=== PATIENT | female | born 1980 ===

== ENCOUNTER 2017-07-21 00:20 | Emergency (ER) | payer OTHER ==
[2017-07-21 21:31] VITALS: BP 106/70; PULSE 86; RESP 17; TEMP 97.5
== END 2017-07-21 02:00 | disposition home or self-care (01) ==
LOC: H.EROB2 00:20 → H.EROB 00:20 → H.EROB2 02:00
DX: O47.1 False labor at or after 37 completed weeks of gestation (principal); Z3A.28 28 weeks gestation of pregnancy

== ENCOUNTER 2017-08-03 08:16 | Inpatient (IN) | payer OTHER ==
[2017-08-03 08:47] VITALS: BMI 36.8
[2017-08-03] MEDS: Lactated Ringer's 1,000 ML IV SCH ×4 (09:00→15:00)
[2017-08-03 09:46] LABS: BASO % 0.3 % (0.0-2.0); EOS # 0.1 K/uL (0.0-0.7); LYMPH # 1.5 K/uL (1.0-4.3); LYMPH % 14.4 % (20.0-40.0); MEAN CORPUSCULAR HEMOGLOBIN 30.5 pg (27.0-31.0); MEAN CORPUSCULAR HGB CONC 32.8 g/dL (33.0-37.0); MEAN PLATELET VOLUME 9.3 fl (7.2-11.7); MONO # 0.7 K/uL (0.0-0.8); MONO % 6.6 % (0.0-10.0); NEUT # 8.1 K/uL (1.8-7.0); NEUT % 77.7 % (50.0-75.0); RED CELL DISTRIBUTION WIDTH 14.8 % (11.5-14.5); WHITE BLOOD COUNT 10.4 K/uL (4.8-10.8)
[2017-08-03 09:57] LABS: PARTIAL THROMBOPLASTIN TIME 27.1 Seconds (25.6-37.1)
[2017-08-03] MEDS ORDERED: Fentanyl/Bupivacaine HCl 250 ML EPI ONE (12:23)
[2017-08-03] MEDS ORDERED: Bupivacaine HCl 0.25% PF (10 ml) Inj ONE (12:24)
[2017-08-03] MEDS ORDERED: Influenza Vaccine 18yr & older 0.5 ML/45 MCG SYR IM ONE (12:24)
[2017-08-03] MEDS ORDERED: Lidocaine 1% Inj (20ml) ONE (17:13)
[2017-08-03] MEDS ORDERED: Oxytocin 30 units/LR 500ML 30 U/500 ML BAG IV ONE ×2 (18:04)
--- NOTE | 2017-08-03 18:32 | OBADHP ---
Datetime: 08/03/2017 18:26 Admit Comment, IP Provider: term h/o dvt on heparin admitted for induction of labor and de livery Pelvic Type - PN: Adequate Extremities - PN: Normal Abdomen - PN: Normal Back - PN: Normal Breast - PN: Normal Lungs - PN: Normal Heart - PN: Normal Thyroid - PN: Normal Neurologic - PN: Normal HEENT - PN: Normal General - PN: Normal Presentation-Admit: Vertex FHR - Baseline A Provider: 140 Membranes, Provider: Intact Contraction Comments Provider: irregular Gestation - Est Wks by US: 40+ Vital Signs Provider: Reviewed; Within Normal Limits IP Chief Complaint: Uterine contractions NICHD Variability Prov Fetus A: Moderate 6-25bpm NICHD Accel Fetus A IP Provider: 10X10 FHR Category Provider Fetus A: Category I NICHD Decel Fetus A IP Provider: None Dilatation, Provider: 3 Effacement, Provider: 75% Station, Provider: -2 Genitourinary Exam: Normal DTRs - PN: Normal EGA AdmitDate IP: 40.1 IP Adm Impression: Postterm, intrauterine ; Intact Membranes IP Admit Plan: Admit to unit; Initiate labor induction protocol
--- NOTE | 2017-08-03 18:37 | OBDS ---
DELIVERY PERSONNEL Delivery Doctor: Yue Lim MD Beck Operator: Maricruz Hatch RN MATERNAL INFORMATION Delivery Anesthesia: Epidural Medications in Delivery: 30 units Pitocin in 500 ml LR Estimated Blood Loss (ml): 200 Placenta Cultured: No Maternal Complications: None Provider Comments: delivery of live baby boy 9/9 clear fluid cord with 3vessels placenta intac t first degree laceration and repair with 2-0 chromic LABOR SUMMARY EDC: 08/02/2017 00:00 No. Babies in Womb: 1 Attempted: 0 Labor Anesthesia: Epidural LABOR INFORMATION Reason for Induction: Postterm Onset of Labor: 08/03/2017 12:30 Complete Dilatation: 08/03/2017 17:05 Oxytocin: Augmentation Group B Beta Strep: Negative (Annotations: 07/03/17) Antibiotics # of Doses: 0 Steroids Given: None Reason Steroids Not Administered: Not Applicable MEMBRANES Membranes Rupture Method: Artificial Rupture of Membranes: 08/03/2017 11:10 Length of Rupture (hrs): 6.82 Amniotic Fluid Color: Clear Amniotic Fluid Amount: Small Amniotic Fluid Odor: Normal STAGES OF LABOR Stage 1 hrs: 4 Stage 1 min: 35 Stage 2 hrs: 0 Stage 2 min: 54 Stage 3 hrs: 0 Stage 3 min: 5 Total Time in Labor hrs: 5 Total Time in Labor min: 34 VAGINAL DELIVERY Episiotomy: None Laceration Extension: First Degree Laceration Type: Perineal Laceration Repair Note: repair of laceration with2-0 chromic Initial Vag Sponge Count: 5 Final Vag Sponge Count: 5 Initial Vag Sharps Count: 1 Final Vag Sharps Count: 1 Sponge Count Correct: Yes Sharps Count Correct: Yes Count Comment: correct CSECTION DELIVERY Primary Indication: N/A Secondary Indication: N/A CSection Urgency: N/A CSection Incidence: N/A Labor: N/A Elective: N/A CSection Incision: N/A BABY A INFORMATION Delivery Date/Time: 08/03/2017 17:59 Method of Delivery: Vaginal Born in Route : No : N/A Forceps: N/A Vacuum Extraction: N/A Shoulder Dystocia : No SHOULDER DYSTOCIA BABY A Infant Delivery Date/Time: 08/03/2017 17:59 PRESENTATION/POSITION BABY A Presentation: Cephalic Cephalic Presentation: Vertex Vertex Position: Left Occipital Anterior Breech Presentation: N/A PLACENTA INFORMATION BABY A Placenta Delivery Time : 08/03/2017 18:04 Placenta Method of Delivery: Spontaneous Placenta Status: Delivered SCORES BABY A Heart Rate 1 min: >100 bpm Resp Effort 1 min: Good Cry Reflex Irritability 1 min: Cough or Sneeze or Pulls Away Muscle Tone 1 min: Active Motion Color 1 min: Body [place], Extremities Blue SCORE 1 MIN: 9 Heart Rate 5 min: >100 bpm Resp Effort 5 min: Good Cry Reflex Irritability 5 min: Cough or Sneeze or Pulls Away Muscle Tone 5 min: Active Motion Color 5 min: Body [place], Extremities Blue SCORE 5 MIN: 9 INFANT INFORMATION BABY A Gestational Age at Delivery: 40.1 Gestational Status: Term Outcome : Liveborn Infant Condition : Stable Infant Sex: Male IDENTIFICATION/MEDS BABY A ID Band Number: [id number] WEIGHT/LENGTH BABY A Infant Birthweight (gms): 3140 Infant Weight (lb): 6 Weight (oz): 15 CORD INFORMATION BABY A No. Cord Vessels: 3 Nuchal Cord : N/A Cord Blood Taken: Yes Suction: Mouth; Nose ASSESSMENT BABY A Complications: None Physical Findings at Delivery: Within Normal Limits Infant Respirations: Appears Normal Care By: Ivy Evans Transferred To: Remains with Mother
[2017-08-03] MEDS ORDERED: Benzocaine/Menthol SPRAY TOP PRN (18:38)
[2017-08-03] MEDS ORDERED: Oxycodone/Acetaminophen 5/325 mg Tab PO PRN ×2 (18:38)
[2017-08-04 08:11] LABS: BASO # 0.1 K/uL (0.0-0.2); BASO % 0.5 % (0.0-2.0); EOS # 0.1 K/uL (0.0-0.7); EOS % 0.8 % (0.0-4.0); HEMATOCRIT 37.1 % (34.0-47.0); LYMPH # 2.3 K/uL (1.0-4.3); LYMPH % 13.5 % (20.0-40.0); MEAN CORPUSCULAR HEMOGLOBIN 30.7 pg (27.0-31.0); MEAN PLATELET VOLUME 9.2 fl (7.2-11.7); MONO # 1.2 K/uL (0.0-0.8); MONO % 7.3 % (0.0-10.0); NEUT % 77.9 % (50.0-75.0); RED CELL DISTRIBUTION WIDTH 14.9 % (11.5-14.5); WHITE BLOOD COUNT 16.7 K/uL (4.8-10.8)
[2017-08-04] MEDS ORDERED: Influenza Vaccine 18yr & older 0.5 ML/45 MCG SYR IM ONE (09:00)
[2017-08-04] MEDS: Enoxaparin 100 mg Syringe SC SCH ×2 (09:22→21:15)
--- NOTE | 2017-08-04 10:41 | OBPPN ---
Datetime: 08/04/2017 10:36 PP Pain Prov: Within normal limits PP Nausea Prov: Denies PP Flatus Prov: Yes PP BM Prov: No PP Breasts Prov: Normal PP Heart Prov: Normal PP Lungs Prov: Normal PP Abdomen/Uterus Prov: Normal PP Lochia Prov: Normal PP Vulva/Perineum Prov: Normal PP CVA Tenderness Prov: Normal PP Extremities Prov: Normal PP Progress Prov: Normal PP Impression Prov: Normal progression PP Plan Prov: Continue present management PP Progress Note Prov: stable ppd1 continue present care IP PP Procedures: None Vital Signs Provider PP: Reviewed; Within Normal Limits
[2017-08-05] MEDS: Enoxaparin 100 mg Syringe SC SCH (09:48)
--- NOTE | 2017-08-05 11:27 | OBPPN ---
Datetime: 08/05/2017 11:22 PP Pain Prov: Within normal limits PP Pain Prov comment: No SOB, chest pains or leg pains PP Nausea Prov: Denies PP Flatus Prov: Yes PP Nausea Prov comment: no excessive bleeding PP Breasts Prov: Normal PP Lungs Prov: Normal PP Abdomen/Uterus Prov: Abnormal PP Lochia Prov: Normal PP Vulva/Perineum Prov: Abnormal PP Extremities Prov: Normal PP C/S Incision Prov: Not Applicable PP Progress Prov: Normal PP Comments Phys Exam Prov: breast not engorged NT, abd soft ND fundus firm below the umb. NT Perin eum repaired Ext no calf tenderness, no edema PP Impression Prov: Normal progression PP Plan Prov: Discharge PP Progress Note Prov: D/C home with instructions and to continue Levonox and PNC vit Follow up roxana Chandler IP PP Procedures: None Vital Signs Provider PP: Reviewed
--- NOTE | 2017-08-05 11:30 | OBDCSUM ---
Datetime: 08/05/2017 11:26 Discharged to, Provider: Home Follow up at, Provider: Dr Ojeda Disch Instr Activity: Bedrest; May be up to bathroom; May be up for meals; May Shower Disch Instr Diet: Regular Discharge Instructions, Provider: Specific instructions as noted Discharge Diagnosis, Provider: Term Delivered Discharge Time: 08/05/2017 11:26 Follow up in weeks, Provider: 2 wks Contraception discussed, Prov: Yes Disch Activity Restrictions: No exercising; No lifting; No driving; Minimize stair-climbing; No sexu al activity; Nothing in vagina - [place], tampons, douche Discharge Comment, Provider: Continue PNC vit and Levonox bid and to follow also with E/M Engineer I nstructions given and voices understanding and agreed. Discharge Diagnosis Prov Other: Hx of DVT's on Levonox Contraception after Delivery: Undecided Datetime: 07/21/2017 01:36 Follow up at, Provider: Dr. Lim Disch Instr Activity: Normal activity; May be up to bathroom; May be up for meals; May Shower Discharge Time: 08/05/2017 12:00 Follow up in weeks, Provider: in 5 to 6 weeks Disch Activity Restrictions: No lifting; No sexual activity; Nothing in vagina - [place], tampon s, douche
[2017-08-05 19:11] VITALS: BP 126/75; PULSE 64; RESP 20; TEMP 98.5; O2SAT 100
== END 2017-08-05 14:30 | disposition home or self-care (01) | DRG 775 ==
LOC: UNDOADMIN 08:16 → H.L&D 08:16 → H.OB/GYN 21:04
PROVIDERS: ADMIT Specialist; ATTEND Specialist
PROC: 10E0XZZ Delivery of Products of Conception, External Approach (ICD-10-PCS; principal; 2017-08-03)
PROC: 0HQ9XZZ Repair Perineum Skin, External Approach (ICD-10-PCS; 2017-08-03)
PROC: 10907ZC Drainage of Amniotic Fluid, Therapeutic from Products of Conception, Via Natural or Artificial Opening (ICD-10-PCS; 2017-08-03)
PROC: 4A1HXCZ Monitoring of Products of Conception, Cardiac Rate, External Approach (ICD-10-PCS; 2017-08-03)
PROC: 3E0234Z Introduction of Serum, Toxoid and Vaccine into Muscle, Percutaneous Approach (ICD-10-PCS; 2017-08-04)
PROC: 3E0234Z Introduction of Serum, Toxoid and Vaccine into Muscle, Percutaneous Approach (ICD-10-PCS; 2017-08-05)
DX: O48.0 Post-term pregnancy (principal); O70.0 First degree perineal laceration during delivery; O09.523 Supervision of elderly multigravida, third trimester; Z37.0 Single live birth; Z3A.40 40 weeks gestation of pregnancy; Z86.718 Personal history of other venous thrombosis and embolism; Z23 Encounter for immunization